=== PATIENT | female | born 2000 | race Caucasian/White ===

== ENCOUNTER 2020-11-11 08:03 | Inpatient (IN) ==
[2020-11-11] MEDS ORDERED: *HR* Nalbuphine 10 MG/ML AMPUL IV PRN (08:58)
[2020-11-11] MEDS ORDERED: Naloxone 0.4 MG/ML INJ IVP PRN (08:58)
[2020-11-11] MEDS ORDERED: Metoclopramide 10 MG/2 ML VIAL IVP PRN (08:58)
[2020-11-11] MEDS ORDERED: Lidocaine 1% 20 ML MDV INFILT PRN (08:58)
[2020-11-11] MEDS ORDERED: Famotidine 20 MG/2 ML VIAL IVP PRN (08:58)
[2020-11-11 09:41] LABS: Basophils % 0.1 %; Eosinophils % 0.5 %; Hemoglobin 12.2 g/dL (11.5-15.4); Immature Granulocytes % 0.4 % (0-4); Lymphocytes # 1.2 K/mcL (0.6-4.6); Lymphocytes % 14.8 %; Mean Corpuscular HGB Conc 34.9 g/dL (31.6-35.5); Mean Corpuscular Hemoglobin 31.5 pg (28.0-33.3); Mean Corpuscular Volume 90.4 fL (83.0-100.0); Mean Platelet Volume 11.8 fL (9.4-12.4); Monocytes # 0.5 K/mcL (0.0-1.3); Monocytes % 6.2 %; Neutrophils # 6.1 K/mcL (1.6-8.9); Platelet Count 141 K/mcL (140-400); Red Blood Count 3.87 M/mcL (3.82-4.97); Red Cell Distribution Width 12.7 % (11.5-14.5); White Blood Count 7.8 K/mcL (4.3-11.1)
[2020-11-11] MEDS ORDERED: EPHEDrine 50 MG/ML VIAL IVP PRN (09:48)
[2020-11-11 10:55] LABS: Amphetamine Screen,Urine Negative ng/mL (Cutoff=1000); Barbiturate Screen,Urine Negative ng/mL (Cutoff=200); Benzodiazepines Screen,Urine Negative ng/mL (Cutoff=200); Cannabinoid Screen,Urine Negative ng/mL (Cutoff = 50); Cocaine Screen,Urine Negative ng/mL (Cutoff= 300); Opiate Screen,Urine Negative ng/mL (Cutoff=300); Phencyclidine Screen,Urine Negative ng/mL (Cutoff=25)
[2020-11-11] MEDS ORDERED: Oxytocin 20 units/ LR 1000 mL 20 UNIT/1,000 ML BAG IVC SCH (11:30)
[2020-11-11] MEDS: Ringers Solution, Lactated 1,000 ML IVC SCH ×2 (12:14→15:57)
[2020-11-11 14:36] LABS: Adenovirus Not Detected (Not Detect); Bordetella Pertussis Not Detected (Not Detect); Chlamydophila pneumoniae Not Detected (Not Detect); Coronavirus 229E Not Detected (Not Detect); Coronavirus HKU1 Not Detected (Not Detect); Coronavirus NL63 Not Detected (Not Detect); Coronavirus OC43 Not Detected (Not Detect); Human Metapneumovirus Not Detected (Not Detect); Human Rhinovirus/Enterovirus Not Detected (Not Detect); Influenza A Subtype 2009 H1 Not Detected (Not Detect); Influenza B Not Detected (Not Detect); Mycoplasma pneumoniae Not Detected (Not Detect); Parainfluenza Virus 1 Not Detected (Not Detect); Parainfluenza Virus 2 Not Detected (Not Detect); Parainfluenza Virus 3 Not Detected (Not Detect); Parainfluenza Virus 4 Not Detected (Not Detect); Respiratory Syncytial Virus Not Detected (Not Detect); SARS-CoV-2 Not Detected (Not Detect)
[2020-11-11] MEDS: Epidural Premix (fent/bupiv) 110 ML EP SCH (18:09)
[2020-11-12] MEDS: Epidural Premix (fent/bupiv) 110 ML EP SCH (01:17)
[2020-11-12] MEDS ORDERED: Acetaminophen 325 MG TABLET PO PRN (07:49)
[2020-11-12] MEDS ORDERED: Benzocaine/Menthol 56 GM AEROSOL SPRAY TP PRN (07:49)
[2020-11-12] MEDS ORDERED: Oxytocin 20 units/ LR 1000 mL 20 UNIT/1,000 ML BAG IVC SCH (07:49)
[2020-11-12] MEDS ORDERED: Lanolin 7 G OINT...G. TP PRN (07:49)
[2020-11-12] MEDS ORDERED: Measles/Mumps/Rubella Vacc 0.5 ML VIAL SQ PRN (07:49)
[2020-11-12] MEDS ORDERED: Rho Immune Globulin 1,500 UNIT SYRINGE IM PRN (07:49)
[2020-11-12] MEDS: Prenatal Vit/FA 1 EACH TABLET PO SCH (08:50)
[2020-11-12] MEDS: Ibuprofen 600 MG TABLET PO PRN ×2 (11:22→20:52)
[2020-11-13 07:44] VITALS: BP 121/71
[2020-11-13] MEDS: Prenatal Vit/FA 1 EACH TABLET PO SCH (08:45)
[2020-11-13] MEDS: Ibuprofen 600 MG TABLET PO PRN (08:45)
[2020-11-13 12:25] LABS: Basophils % 0.3 %; Eosinophils # 0.1 K/mcL (0.0-0.6); Eosinophils % 0.8 %; Hematocrit 31.9 % (35.3-44.9); Hemoglobin 10.6 g/dL (11.5-15.4); Immature Granulocytes % 0.4 % (0-4); Lymphocytes # 1.6 K/mcL (0.6-4.6); Lymphocytes % 14.1 %; Mean Corpuscular HGB Conc 33.2 g/dL (31.6-35.5); Mean Corpuscular Hemoglobin 31.1 pg (28.0-33.3); Mean Corpuscular Volume 93.5 fL (83.0-100.0); Mean Platelet Volume 11.9 fL (9.4-12.4); Monocytes # 0.6 K/mcL (0.0-1.3); Monocytes % 5.1 %; Neutrophils # 9.2 K/mcL (1.6-8.9); Platelet Count 136 K/mcL (140-400); Red Blood Count 3.41 M/mcL (3.82-4.97); Red Cell Distribution Width 12.7 % (11.5-14.5); Segmented Neutrophils % 79.3 %; White Blood Count 11.6 K/mcL (4.3-11.1)
== END 2020-11-13 13:58 | disposition home or self-care (01) | DRG 807 ==
LOC: 1NENULAB 08:03 → 1NENUOBS 11-12 07:56
PROVIDERS: ADMIT Registered Nurse; ATTEND Registered Nurse